=== PATIENT | male | born 1995 | race Caucasian/White ===

== ENCOUNTER 2017-04-05 18:38 | Emergency (ER) | payer SELFPAY ==
[2017-04-05] MEDS ORDERED: DOXYCYCLINE HYCLATE 100 MG TABLET PO ONE (19:30)
[2017-04-05] MEDS ORDERED: DOXYCYCLINE HYCLATE 100 MG TABLET ONE (19:45)
--- NOTE | 2017-04-05 20:25 | ERNOTE ---
Date of Service: 04/05/17 Time Seen by Provider: 04/05/17 18:50 Stated Complaint: COUGH Presenting Symptoms:: cough Source: patient Exam Limitations: no limitations Immunizations: IMMUNIZATION HX Immunizations Up to Date Yes History of Influenza Vaccine No Hx Pneumococcal Vaccination No Allergies/Adverse Reactions: Allergies No Known Allergies Allergy (Verified 04/05/17 18:57) Home Medications: HOME MEDICATIONS Doxycycline Monohydrate 100 mg PO BID #20 tablet 04/05/17 [Last Taken Unknown] Promethazine HCl [Phenergan Syrup] 10 mg PO QID PRN #1 btl 04/05/17 [Last Taken Unknown] - History of Present Ilness Narrative: Pt. comes in with 2 week history of cough, sore throat, fever, chills, rhinorrhea and chest congestion. Pt. states that his cough is so severe that it keeps him awake at night. Pt. states that he has no relief despite using robitussin cough syrup. Pt. denies any SOB, CP, NVD, ill contacts, or aggravating factors. Review of Systems - Review of Systems Constitutional: Present: fever, chills. Absent: recent illness, weakness, fatigue, malaise EYE: Present: no symptoms reported ENT: Present: nose pain, nose congestion, nasal drainage, sore throat Respiratory: Present: cough. Absent: shortness of breath, orthopnea, wheezing Cardiology: Present: no symptoms reported. Absent: chest pain, palpitations, edema Gastrointestinal/Abdominal: Present: no symptoms reported. Absent: nausea, vomiting, diarrhea Genitourinary: Present: no symptoms reported Musculoskeletal: Present: no symptoms reported. Absent: back pain, joint pain Skin: Present: no symptoms reported. Absent: rash, change in hair/nails Neurological: Present: no symptoms reported. Absent: headache, dizziness/light- headedness, numbness, tingling All Other Systems: All systems neg except as marked - Patient's Past Medical History Patient History - Medical: No pertinent hx Patient History - Cardiac/Respiratory: No pertinent hx Patient History - Cancer: No Hx of Cancer Patient History - Surgical Procedures: Orthopedic Patient History - Other: None - Social History Living Situations: home Abuse History: No History of abuse Psych History: No pertinent hx Smoking Status: Current every day smoker Alcohol Use: heavy Drug Use: none - Immunizations Immunizations Up to Date: Yes Hx Pneumococcal Vaccination: No History of Influenza Vaccine: No Physical Exam - Physical Exam General Appearance: Present: wd/wn, alert, no apparent distress Head Exam: Present: normal inspection, no evidence of injury Eye Exam: Normal inspection: bilateral Ears, Nose, Throat: Present: nasal congestion, pharyngeal erythema. Absent: abnormal TM (R), abnormal TM (L), tonsillar swelling Neck: Present: normal inspection, nontender. Absent: lymphadenopathy (R), lymphadenopathy (L) Respiratory: Present: no respiratory distress, normal breath sounds, no accessory muscle use, chest nontender, lungs clear Cardiovascular/Chest: Present: regular rate, rhythm, no murmur, normal peripheral pulses Rectal Exam: Present: nontender, normal rectal tone Back Exam: Present: normal inspection Extremity Exam: Present: normal inspection Neurological Exam: Present: alert, oriented, normal mood/affect, no motor/ sensory deficits Skin Exam: Present: warm/dry, pallor ED Progress - Vital Signs Patient's Vital Signs:: I have reviewed the patient's vital signs. Vital Signs: Vital Signs 04/05/17 18:54 Temperature 38.5 C H Pulse Rate 122 H Respiratory 18 Rate Blood Pressure 125/60 O2 Sat by Pulse 94 Oximetry - X-Ray X-Ray #1 X-Ray: chest Interpretation: Interp. by me X-ray Comments: no infiltrates or consolidations - Progress/Reassessment Chief Complaint: Cough Progress:: Unchanged Departure - Departure Clinical Impression: Bronchitis Disposition: Home self-care Condition: Good Instructions: Acute Bronchitis, [id number] Additional Instructions: Please follow up with primary provider in 2-3 days. Prescriptions: Doxycycline Monohydrate 100 mg PO BID #20 tablet Promethazine HCl [Phenergan Syrup] 10 mg PO QID PRN #1 btl PRN Reason: Cough
[2017-04-05 20:35] VITALS: BP 119/83
== END 2017-04-05 20:42 | disposition home or self-care (01) ==
LOC: ER 18:38
DX: J40 Bronchitis, not specified as acute or chronic (principal); F17.200 Nicotine dependence, unspecified, uncomplicated